=== PATIENT | male | born 1995 | race Asian ===

== ENCOUNTER 2018-04-02 13:45 | Emergency (ER) | payer OTHER ==
[~2018-04-02] VITALS: Ht 182.9 cm; Wt 102.5 kg
[2018-04-02 13:49] VITALS: Ht 182.9 cm; Wt 102.5 kg
[2018-04-02 14:31] VITALS: BP 150/95
== END 2018-04-02 14:31 | disposition home or self-care (01) ==
LOC: EDBD 13:45 → ED 13:45
DX: J03.90 Acute tonsillitis, unspecified (principal); R03.0 Elevated blood-pressure reading, without diagnosis of hypertension